=== PATIENT | female | born 1945 | race Caucasian/White ===

== ENCOUNTER 2017-03-14 11:32 | Day surgery (SDC) | payer MEDICARE ==
[~2017-03-14] VITALS: Ht 157.5 cm; Wt 96.7 kg
[2017-03-14] VITALS (7 sets, daily range): BP systolic 143–156; BP diastolic 65–82; PULSE 52–68; RESP 14–18; O2SAT 94–99
[~2017-03-14 11:32] MED LIST: AMLO2.5T PO; ASPI-973 PO; CHOL10008 PO; CeFAZolin 2 Gm/50 mL D5W IV Premix IV ONE; GABA-500 PO; GABA-502 PO; LISI-567 PO; LORA10CA PO; Lactated Ringer's 1,000 ML IV SCH; MELO-253 PO; MULT-1083 PO; OMEP20TA86 PO; PROP160C2 PO
[2017-03-14] MEDS ORDERED: Ondansetron 2 mg/mL 2 mL Inj ONE (11:33)
[2017-03-14] MEDS ORDERED: EPHEDrine/NS 5 mg/mL 5 mL Syringe ONE (11:33)
[2017-03-14] MEDS ORDERED: Propofol 10,000 mCg/mL 20 mL Inj ONE (11:33)
[2017-03-14] MEDS ORDERED: Ketamine 10 mg/mL 20 mL Inj ONE (11:33)
[2017-03-14] MEDS ORDERED: CeFAZolin 2 Gm/50 mL D5W Duplex Bag IV ONE (11:55)
[2017-03-14] MEDS ORDERED: Lactated Ringer's 1,000 ML IV ONE (12:00)
[2017-03-14] MEDS ORDERED: ACET500C49 PO (12:30)
--- NOTE | 2017-03-14 13:45 | PCM.HPANE ---
Patient Data Surgeon Admitting Provider: Attending Provider:Sidney Monroy DO Primary Care Physician:Sidney Alonzo DO Other Provider:Lashon Gardiner Anesthesia Reason for Visit Right Shoulder Impingement And Ac Arthritis Ht/WT & BMI Height (Feet): 5 Height (Inches): 2 Weight (Kilograms): 96.7 Body Mass Index 39.00 Allergies Coded Allergies: Sulfa (Sulfonamide Antibiotics) (Verified Allergy, Severe, 03/14/17) Past Anesthesia History Anesthesia History: Denies:: Abnormal Airway, Anesthesia Reactions, Difficult Intubation, Fam Anesthesia Reaction Diabetes History Hx Diabetes?: No MRSA MRSA: No Medications Blood Thinner: Aspirin Hypertension Medication: Yes Home Meds Incl Beta Isela: No Reported Medications Acetaminophen 500 Mg Capsule1,000 Mg PO TID PRN For Pain 03/14/17 Gabapentin 300 Mg [id number] Mg PO DAILY Ref 0 03/08/17 Cholecalciferol (Vitamin D3) (Vitamin D3)1,000 Unit Tab.chew1,000 Unit PO DAILY 12/22/16 Multivit-Min/FA/Lycopene/Lut (Senior Tabs)0.4 Mg-300 Mcg-250 Mcg Tablet1 Each PO DAILY 12/22/16 Propranolol ER 160 Mg Cap.sa.[id number] Mg PO DAILY 12/22/16 Omeprazole 20 Mg Tablet.dr20 Mg PO DAILY 12/22/16 Meloxicam 15 Mg Tsctui66 Mg PO DAILY 30 Days Ref 0 12/22/16 Lisinopril 20 Mg Frufhh74 Mg PO BID 30 Days Ref 0 12/22/16 Gabapentin 100 Mg Agtsqiy697 Mg PO TID PRN For Pain 30 Days Ref 0 12/22/16 Loratadine (Claritin)10 Mg Iruzttp08 Mg PO DAILY Ref 0 12/22/16 Aspirin 81 Mg Hminen72 Mg PO DAILY Ref 0 12/22/16 Amlodipine 2.5 Mg Tablet2.5 Mg PO DAILY Ref 0 12/22/16 Discontinued Reported Medications Diclofenac ER 50 Mg Hfrdgb56 Mg PO BID 12/22/16 History History of ENT Problems?: Yes HEENT History: Positive for:: Hearing Problem Sinus Problem (seasonal allergies, chronic) Denies:: Abnormal Airway Cataracts Difficult Intubation Dysphagia Glaucoma Denture Type: None Teeth Condition: Within Normal Limits Hx of Heart Problems?: Yes Cardiovascular History: Positive for:: Heart Murmur (systolic murmur historically) Hypertension Irregular Heartbeat (palpitations- takes propranolol ) Valvular Heart Disease (echo 65-70%, mild MR) Denies:: Atrial Fibrillation Chest Pain Congestive Heart Failure Coronary Artery Disease Edema Hx of Respiratory Problem?: No Respiratory History: Denies:: Asthma COPD Emphysema Oxygen Administration Pneumonia Tuberculosis Use of C-PAP Machine Use of Inhalers / NEBS Hx Neurologic Problems?: No Neurological History: Denies:: CVA Headaches Multiple Sclerosis Parkinson's Disease Seizures Hx of GI Problems?: No Hx of Problems?: No Genitourinary History: Denies:: Kidney Stones Urinary Tract Infection Female Hx: Positive for:: Problems with Breasts? (prior hx of breast cysts) Denies:: Currently (post menopausal, tubal ) Skin History: Denies:: History Skin Disorders? Pressure Ulcers Hx Musculoskeletal Problems?: Yes Musculoskeletal History: Positive for:: Back Injury (chronic back pain- spondylithosis) Degenerative Joint Musculoskeletal Trauma (right shoulder current admission problem) Osteoarthritis Denies:: Fibromyalgia Joint Replacement Hx of Psycho/Social Problems?: No Psycho Social History: Denies:: Anxiety Hx Depression Hx Surgeries?: Yes (tubal) Hx Any Other Health Problems?: Yes Other History: Positive for:: Hospitalization Denies:: Cancer Thyroid Disease History Blood Transfusions: Positive for:: Accept Blood Products? Denies:: Blood Transfusions Hx Diabetes: No Hx Alcohol Use: YesHx Substance Use: No Smoking Status: Former Smoker Have You Smoked inLast 12 mo: No Stop/Bang Treated for Sleep Apnea?: No Do You Have a CPAP Machine?: No S-Snoring: Do You Snore Loudly: No T-Tired: feel tired, fatigued: No O-Obsered: Observed not breath: No P-Blood Pressure: treated: Yes B- Body Mass Index > 35 kg/m2: Yes A- Age over 50: Yes N- Neck Large Circumference: No G- Gender Male: No TANISHA Total Score: 3 TANISHA Risk Assessment: Low Risk, <3 Yes Risk Assessment Category Category 1A: Patient has history of documented sleep apnea, and HAS NOT received any narcotic, sedative or anesthesia administration during this stay. Category 1B: Patient has history of documented sleep apnea, and HAS received any narcotic , sedative or anesthesia administration during this stay Category 2: Patient has SUSPECTED Obstructive Sleep Apnea, and HAS received any narcotic , sedative or anesthesia administration during this stay. Category 3: Patient has SUSPECTED Obstructive Sleep Apnea and HAS NOT received narcotic, sedative or anesthesia administration during this stay. Category 4: Outpatient in Procedural Areas with known sleep apnea or who screen positive for High Risk via the STOP/BANG questionnaire. Exam Exam Vital Signs Vital Signs Date Time Temp Pulse Resp B/P Pulse Ox O2 Delivery O2 Flow Rate FiO2 03/14/17 12:00 36.3 63 16 156/82 98 Room Air General Appearance: Oriented X3 HEENT/AIRWAY: MP 1 Lungs: Normal Air Movement Heart: Murmur Meds/Labs/Diagnostics Admission Meds Current Medications Lactated Ringer's (Lr) 1,000 ml @ ud STK-MED ONCE IV Last administered on 03/14t 12:00; Start 03/14/17 at 12:00; Stop 03/14/17 at 12:26; Status DC Plan Impression Patient chart reviewed, patient interviewed and anesthestic plan with risks, benefits, and alternatives discussed, and informed consent obtained. ASA Physical Status: ASA2 Mod Systemic Disease Anesthetic Plan: GA, Regional Block Bene/Risks/Altern/Consents: Yes HP Complete Prior to Induction: Yes Juvenal Jimenez MD Mar 14, 2017 13:45
[2017-03-14] MEDS ORDERED: Lidocaine 1%/Epi 1:100,000 30 mL MDV INFILTRATE ONE (15:42)
[2017-03-14] MEDS ORDERED: Ropivacaine-PF 0.5% 30 mL Inj INFILTRATE ONE (17:04)
[2017-03-14] MEDS ORDERED: hydrOXYzine Pamoate 25 mg Capsule PO PRN (17:05)
[2017-03-14] MEDS: Lactated Ringer's 1,000 ML IV SCH ×2 (17:05→17:41)
[2017-03-14] MEDS ORDERED: Ketorolac 15 mg/mL Inj IVPUSH ONE (17:05)
[2017-03-14] MEDS ORDERED: HYDROcodone-APAP 7.5-325 mg Tablet PO PRN (17:05)
[2017-03-14] MEDS ORDERED: Lactated Ringer's 1,000 ML IV SCH (17:29)
[2017-03-14] MEDS ORDERED: Lactated Ringer's 500 ML IV PRN (17:29)
[2017-03-14] MEDS ORDERED: Dexamethasone 4 mg/mL Inj IVPUSH PRN (17:30)
[2017-03-14] MEDS ORDERED: EPHEDrine Sulfate 50 mg/mL Inj IVPUSH PRN (17:30)
[2017-03-14] MEDS ORDERED: Ondansetron 2 mg/mL 2 mL Inj IVPUSH PRN (17:30)
[2017-03-14] MEDS ORDERED: fentaNYL-PF 50 mCg/mL 2 mL Inj IVPUSH PRN (17:30)
[2017-03-14] MEDS ORDERED: Phenylephrine 10,000 mCg/mL Inj IVPUSH PRN (17:30)
[2017-03-14] MEDS ORDERED: MetoCLOpramide 5 mg/mL 2 mL Inj IVPUSH PRN (17:30)
[2017-03-14] MEDS ORDERED: HYDROmorphone 1 mg/mL Inj IVPUSH PRN (17:30)
--- NOTE | 2017-03-14 18:28 | OP ---
[address] [address] OPERATIVE REPORT PATIENT: AMARI KELLY : 1945 MR#: [id number] ADMIT: 03/14/2017 JOB ID: [id number] DATE OF SURGERY: 03/14/2017 PREOPERATIVE DIAGNOSIS(ES): Right shoulder impingement with acromioclavicular joint arthritis and rotator cuff tear. POSTOPERATIVE DIAGNOSIS(ES): Right shoulder rotator cuff tear, impingement, acromioclavicular joint arthritis, and long head biceps tendon tear and tendinitis. PROCEDURE: Right shoulder video arthroscopy with subacromial decompression, arthroscopic distal clavicle resection, arthroscopic rotator cuff repair, and mini open subpectoral biceps tenodesis. SURGEON: Sidney Monroy DO. INDOOR LANDSCAPE ARCHITECT: Chandrika Torres DO, PGY1, and Mary Benavides PA-C. INDICATIONS: The patient is a 71-year-old female with right shoulder pain who had failed conservative measures and wished to proceed with right shoulder arthroscopy. We discussed the risks, benefits, and possible complications of surgery. All questions were answered and the patient wished to proceed. A surgical endoscopist was required for the successful completion of the procedure PROCEDURE IN DETAIL: A surgical time-out was performed and a surgical endoscopist was required for the successful completion of this procedure. The right shoulder was sterilely prepped and draped. An incision was made over the posterolateral shoulder for the posterolateral portal, and inspection was undertaken in the glenohumeral joint. Her glenohumeral joint was found to be free of any significant articular pathology. Unfortunately, her labrum had some degenerative tearing. Her long head biceps was partially torn and quite inflamed. An anterior portal was established under needle localization and the biceps was released off of the superior labrum. The subscapularis was found to be intact. The supraspinatus was found to have a tear in the insertion of the tuberosity. The scope was then removed and replaced in the subacromial space, and a lateral portal was established. A subacromial decompression was undertaken with a shaver and coagulation wand. She was noted to have a moderately large subacromial spur which was resected with a bur, removing about 3-4 mm of bone from the anterior aspect of the acromion in order to aid with completion of the procedure and prevent impingement. She was noted to have large osteophytes on the inferior clavicle at the AC joint. She was also noted to have a small tear in the supraspinatus. The tear was debrided and repaired with a single Arthrex corkscrew anchor and two simple stitches which yielded excellent repair of the rotator cuff to the footprint. Next, the distal clavicle was excised and I initially co-planed the distal clavicle and then removed about 8 mm of bone so that a 1 cm space was opened up between the distal clavicle and the acromion. Next, the arthroscopic portion was completed. An incision was made over the distal bicipital groove just below the pec on the upper arm. Dissection was carefully carried through the subcutaneous tissue. Electrocautery was used for hemostasis. A split was then made in the fascia overlying the biceps and the long head biceps tendon was then herniated out through the wound. Noted to be torn. Next, soft tissue was cleared off of the bicipital groove and a 4.5 drill hole was made proximally and two 2.0 drill holes were made distally. The long head biceps tendon was cut to appropriate length and then whipstitched and passed using a Kong suture passer so that the suture ends entered through the 4.5 and exited through the 2.0 drill holes. The free needle was then used to tie the biceps tendon back onto itself to tenodese it in place. This yielded an excellent fixation of the biceps with appropriate resting tension. The wound was then irrigated and approximated with 3-0 Vicryl to repair the fascia and subcutaneous tissue. The skin overlying the biceps was closed with a running subcuticular 4-0 Monocryl. Some Naropin was added as an adjunct local anesthetic. Sterile dressings were applied. Patient tolerated the procedure well. Blood loss was minimal. POSTOPERATIVE PROTOCOL: Have the patient maintain her arm sling for six weeks. She may remove it to let the arm dangle but no abduction or forward flexion, and follow up with Rani Vasquez in two weeks and with myself in six weeks postop. She was given a prescription for [place] 7.5/325 for pain. OTTO
--- NOTE | 2017-03-15 10:35 | PCM.ANEP1 ---
Post Anesthesia PACU Phase 1 Assessment Anesthetic Administered: GA, Regional Block Level of Alertness: Awake, talking LOMAS's with Equal Strength: Yes Pain: No Nausea or Vomiting: No CV Function & Hydration Stable: Yes Airway Device: Oralpharangeal Airway Oxygen Delivery: Simple Mask Lungs: Normal Air Movement Dermatome Level: Full Sensation (good shoulder block in place) PACU Phase 2 Assessment Complications: No Follow up Care: No Patient Instructions Provided: N/A Ovi Joshi MD Mar 15, 2017 10:35
== END 2017-03-14 23:59 | disposition home or self-care (01) ==
LOC: SAS 11:32
PROVIDERS: ATTEND Orthopaedic Surgery
DX: M75.121 Complete rotator cuff tear or rupture of right shoulder, not specified as traumatic (principal); M19.90 Unspecified osteoarthritis, unspecified site; M75.101 Unspecified rotator cuff tear or rupture of right shoulder, not specified as traumatic; M25.811 Other specified joint disorders, right shoulder; M75.41 Impingement syndrome of right shoulder; M24.111 Other articular cartilage disorders, right shoulder; M75.21 Bicipital tendinitis, right shoulder; I10 Essential (primary) hypertension; R00.2 Palpitations; Z79.82 Long term (current) use of aspirin
CPT/HCPCS: 23430; 29824; 29826; 29827; J0690; J2405; J2795; J7120